=== PATIENT | male | born 1980 | race Caucasian/White ===

== ENCOUNTER 2016-11-29 21:25 | Emergency (ER) | payer MEDICAID ==
[2016-11-29 22:12] LABS: APPEARANCE CLEAR (CLEAR); BILIRUBIN NEGATIVE (NEGATIVE); COLOR STRAW (YELLOW); GLUCOSE NEGATIVE (NEGATIVE); KETONE NEGATIVE (NEGATIVE); LEUKOCYTE ESTERASE NEGATIVE (NEGATIVE); NITRITE NEGATIVE (NEGATIVE); PROTEIN NEGATIVE (NEGATIVE); SPECIFIC GRAVITY 1.005 (1.005-1.020); UROBILINOGEN NORMAL (NORMAL)
[2016-11-29 22:23] LABS: UDS - AMPHET POSITIVE QUAL (NEGATIVE); UDS - BARB NEGATIVE QUAL (NEGATIVE); UDS - BENZO POSITIVE QUAL (NEGATIVE); UDS - COCAINE NEGATIVE QUAL (NEGATIVE); UDS - METH NEGATIVE QUAL (NEGATIVE); UDS - OPIATE NEGATIVE QUAL (NEGATIVE); UDS - PCP NEGATIVE QUAL (NEGATIVE); UDS - THC NEGATIVE QUAL (NEGATIVE)
[2016-11-29 23:27] LABS: BASOPHILS 0.4 % (0.0-2.0); EOSINOPHILS 1.1 % (0-7); HEMATOCRIT 42.6 % (42.0-54.0); HEMOGLOBIN 14.6 g/dL (13.5-17.5); IMMATURE GRANULOCYTES 0.1 % (0-5); LYMPHOCYTES 43.8 % (15-50); MCH 31.9 pg (26.0-34.0); MCHC 34.3 g/dL (31.0-37.0); MEAN PLATELET VOLUME 9.8 fL (7.4-10.4); MONOCYTES 5.4 % (2-11); NEUTROPHILS 49.2 % (40-80); PLATELET COUNT 238 10x3/uL (130-400); RBC 4.58 10x6/uL (4.20-6.10); RDW 12.8 % (11.5-14.5); WBC 8.4 10x3/uL (4.8-10.8)
[2016-11-29 23:44] LABS: ALBUMIN 3.9 g/dL (3.4-5.0); ALKALINE PHOSPHATASE 69 U/L (46-116); ALT (SGPT) 91 U/L (10-68); BILIRUBIN - TOTAL 0.41 mg/dL (0.2-1.3); CALC OSMOLALITY 283 mosm/kg (275-300); CALCIUM 8.6 mg/dL (8.5-10.1); CARBON DIOXIDE 27.1 mmol/L (21.0-32.0); CHLORIDE - SERUM 105 mmol/L (98-107); CREATININE - SERUM 0.9 mg/dL (0.6-1.3); GLUCOSE 108 mg/dL (74-106); POTASSIUM - SERUM 3.8 mmol/L (3.5-5.1); PROTEIN - SERUM 7.5 g/dL (6.4-8.2); SODIUM 142 mmol/L (136-145); UREA NITROGEN 13 mg/dL (7-18); eGFR NON AFRICAN AMERICAN > 90 mL/min (90-120)
== END 2016-11-30 09:01 | disposition home or self-care (01) ==
LOC: D.ER 21:25
PROVIDERS: Surgery
DX: R45.851 Suicidal ideations (principal); F15.10 Other stimulant abuse, uncomplicated; F23 Brief psychotic disorder; F43.20 Adjustment disorder, unspecified; I10 Essential (primary) hypertension

== ENCOUNTER 2017-01-07 14:30 | Emergency (ER) | payer MEDICAID ==
[2017-01-07 15:19] LABS: BASOPHILS 0.3 % (0-2); EOSINOPHILS 2.8 % (0-7); HEMATOCRIT 42.6 % (42.0-54.0); HEMOGLOBIN 14.4 g/dL (13.5-17.5); IMMATURE GRANULOCYTES 0.1 % (0-5); LYMPHOCYTES 42.1 % (15-50); MCH 31.8 pg (26.0-34.0); MCHC 33.8 g/dL (31.0-37.0); MEAN PLATELET VOLUME 10.1 fL (7.4-10.4); MONOCYTES 5.8 % (2-11); NEUTROPHILS 48.9 % (40-80); PLATELET COUNT 237 10x3/uL (130-400); RBC 4.53 10x6/uL (4.20-6.10); RDW 12.8 % (11.5-14.5); WBC 7.4 10x3/uL (4.8-10.8)
[2017-01-07 15:23] LABS: APPEARANCE CLEAR (CLEAR); BILIRUBIN NEGATIVE (NEGATIVE); COLOR YELLOW (YELLOW); GLUCOSE NEGATIVE (NEGATIVE); KETONE NEGATIVE (NEGATIVE); LEUKOCYTE ESTERASE NEGATIVE (NEGATIVE); NITRITE NEGATIVE (NEGATIVE); PROTEIN NEGATIVE (NEGATIVE); SPECIFIC GRAVITY 1.015 (1.005-1.020)
[2017-01-07 15:37] LABS: UDS - AMPHET POSITIVE QUAL (NEGATIVE); UDS - BARB NEGATIVE QUAL (NEGATIVE); UDS - BENZO NEGATIVE QUAL (NEGATIVE); UDS - COCAINE NEGATIVE QUAL (NEGATIVE); UDS - METH NEGATIVE QUAL (NEGATIVE); UDS - OPIATE NEGATIVE QUAL (NEGATIVE); UDS - PCP NEGATIVE QUAL (NEGATIVE); UDS - THC POSITIVE QUAL (NEGATIVE)
[2017-01-07 15:42] LABS: ALBUMIN 3.6 g/dL (3.4-5.0); ALKALINE PHOSPHATASE 90 U/L (46-116); ALT (SGPT) 42 U/L (10-68); BILIRUBIN - TOTAL 0.25 mg/dL (0.2-1.3); CALC OSMOLALITY 288 mosm/kg (275-300); CALCIUM 8.6 mg/dL (8.5-10.1); CARBON DIOXIDE 29.9 mmol/L (21.0-32.0); CHLORIDE - SERUM 109 mmol/L (98-107); CREATININE - SERUM 0.9 mg/dL (0.6-1.3); GLUCOSE 89 mg/dL (74-106); POTASSIUM - SERUM 4.2 mmol/L (3.5-5.1); PROTEIN - SERUM 6.7 g/dL (6.4-8.2); SODIUM 145 mmol/L (136-145); UREA NITROGEN 15 mg/dL (7-18); eGFR NON AFRICAN AMERICAN > 90 mL/min (90-120)
== END 2017-01-08 02:13 ==
LOC: D.ER 14:30
PROVIDERS: Emergency Medicine
DX: F33.9 Major depressive disorder, recurrent, unspecified (principal); R45.851 Suicidal ideations; F43.20 Adjustment disorder, unspecified; I10 Essential (primary) hypertension; F17.200 Nicotine dependence, unspecified, uncomplicated

== ENCOUNTER 2017-03-23 23:21 | Emergency (ER) | payer MEDICAID ==
[2017-03-24 00:16] LABS: BASOPHILS 0.2 % (0-2); EOSINOPHILS 1.2 % (0-7); HEMOGLOBIN 18.2 g/dL (13.5-17.5); IMMATURE GRANULOCYTES 0.3 % (0-5); LYMPHOCYTES 38.1 % (15-50); MCH 32.7 pg (26.0-34.0); MCHC 35.7 g/dL (31.0-37.0); MCV 91.6 fL (80.0-100.0); MEAN PLATELET VOLUME 10.4 fL (7.4-10.4); MONOCYTES 10.2 % (2-11); PLATELET COUNT 272 10x3/uL (130-400); RBC 5.57 10x6/uL (4.20-6.10); RDW 13.1 % (11.5-14.5); WBC 12.4 10x3/uL (4.8-10.8)
[2017-03-24 00:20] LABS: ALBUMIN 5.2 g/dL (3.4-5.0); ANION GAP 18.4 mmol/L (8-16); BILIRUBIN - TOTAL 0.8 mg/dL (0.2-1.3); CALCIUM 10.4 mg/dL (8.5-10.1); CREATININE - SERUM 3.4 mg/dL (0.6-1.3); POTASSIUM - SERUM 3.4 mmol/L (3.5-5.1); PROTEIN - SERUM 9.8 g/dL (6.4-8.2)
[2017-03-24 00:23] LABS: UDS - AMPHET POSITIVE QUAL (NEGATIVE); UDS - BARB NEGATIVE QUAL (NEGATIVE); UDS - BENZO NEGATIVE QUAL (NEGATIVE); UDS - COCAINE NEGATIVE QUAL (NEGATIVE); UDS - METH NEGATIVE QUAL (NEGATIVE); UDS - OPIATE NEGATIVE QUAL (NEGATIVE); UDS - PCP NEGATIVE QUAL (NEGATIVE); UDS - THC NEGATIVE QUAL (NEGATIVE)
[2017-03-24 00:25] LABS: APPEARANCE HAZY (CLEAR); BILIRUBIN NEGATIVE (NEGATIVE); COLOR DK YELLOW (YELLOW); GLUCOSE 50 mg/dL (NEGATIVE); KETONE NEGATIVE (NEGATIVE); LEUKOCYTE ESTERASE TRACE (NEGATIVE); NITRITE NEGATIVE (NEGATIVE); PROTEIN 3+ mg/dL (NEGATIVE); SPECIFIC GRAVITY 1.025 (1.005-1.020); UROBILINOGEN NORMAL (NORMAL)
[2017-03-24 00:26] LABS: BACTERIA MANY /hpf (NONE SEEN); CALCIUM OXALATE CRYSTALS 0-5 /hpf (NONE SEEN); EPITHELIAL CELLS 0-5 /hpf (0-5); RED CELLS - URINE 0-5 /hpf (0-5); WHITE CELLS - URINE 0-5 /hpf (0-5)
== END 2017-03-24 13:13 | disposition short-term general hospital (02) ==
LOC: D.ER 23:21
PROVIDERS: Emergency Medicine
DX: R45.851 Suicidal ideations (principal); F33.9 Major depressive disorder, recurrent, unspecified; F15.10 Other stimulant abuse, uncomplicated; E86.0 Dehydration; N28.9 Disorder of kidney and ureter, unspecified; E87.6 Hypokalemia; I10 Essential (primary) hypertension; F17.200 Nicotine dependence, unspecified, uncomplicated

== ENCOUNTER 2017-04-20 09:44 | Emergency (ER) | payer MEDICAID ==
[2017-04-20 10:17] LABS: BASOPHILS 0.2 % (0-2); EOSINOPHILS 3.4 % (0-7); HEMATOCRIT 45.2 % (42.0-54.0); HEMOGLOBIN 15.1 g/dL (13.5-17.5); IMMATURE GRANULOCYTES 0.2 % (0-5); LYMPHOCYTES 38.6 % (15-50); MCH 31.9 pg (26.0-34.0); MCHC 33.4 g/dL (31.0-37.0); MCV 95.4 fL (80.0-100.0); MEAN PLATELET VOLUME 10.4 fL (7.4-10.4); MONOCYTES 5.8 % (2-11); NEUTROPHILS 51.8 % (40-80); PLATELET COUNT 222 10x3/uL (130-400); RBC 4.74 10x6/uL (4.20-6.10); RDW 13.6 % (11.5-14.5); WBC 6.6 10x3/uL (4.8-10.8)
[2017-04-20 10:30] LABS: UDS - AMPHET POSITIVE QUAL (NEGATIVE); UDS - BARB NEGATIVE QUAL (NEGATIVE); UDS - BENZO NEGATIVE QUAL (NEGATIVE); UDS - COCAINE NEGATIVE QUAL (NEGATIVE); UDS - METH NEGATIVE QUAL (NEGATIVE); UDS - OPIATE NEGATIVE QUAL (NEGATIVE); UDS - PCP NEGATIVE QUAL (NEGATIVE); UDS - THC POSITIVE QUAL (NEGATIVE)
[2017-04-20 10:30] LABS: ALBUMIN 3.8 g/dL (3.4-5.0); ALKALINE PHOSPHATASE 72 U/L (46-116); ALT (SGPT) 134 U/L (10-68); BILIRUBIN - TOTAL 0.81 mg/dL (0.2-1.3); CALC OSMOLALITY 287 mosm/kg (275-300); CALCIUM 8.4 mg/dL (8.5-10.1); CARBON DIOXIDE 32.1 mmol/L (21.0-32.0); CHLORIDE - SERUM 103 mmol/L (98-107); POTASSIUM - SERUM 3.4 mmol/L (3.5-5.1); PROTEIN - SERUM 7.7 g/dL (6.4-8.2); SODIUM 141 mmol/L (136-145); UREA NITROGEN 14 mg/dL (7-18); eGFR NON AFRICAN AMERICAN 89 mL/min (90-120)
[2017-04-20 10:34] LABS: GLUCOSE 215 mg/dL (74-106)
[2017-04-20 10:46] LABS: VALPROIC ACID (DEPAKOTE) < 3.0 ug/mL (50.0-100.0)
[2017-04-20 11:00] LABS: APPEARANCE HAZY (CLEAR); COLOR DK YELLOW (YELLOW); LEUKOCYTE ESTERASE TRACE (NEGATIVE); NITRITE NEGATIVE (NEGATIVE); PROTEIN NEGATIVE (NEGATIVE); SPECIFIC GRAVITY 1.025 (1.005-1.020)
[2017-04-20 11:01] LABS: BILIRUBIN NEGATIVE (NEGATIVE); GLUCOSE 100 mg/dL (NEGATIVE); KETONE NEGATIVE (NEGATIVE); WHITE CELLS - URINE 0-5 /hpf (0-5)
[2017-04-20 11:02] LABS: AMORPHOUS SEDIMENT <1+ /lpf (NONE SEEN); BACTERIA FEW /hpf (NONE SEEN); EPITHELIAL CELLS 0-5 /hpf (0-5); GRANULAR CAST 0-5 /lpf (NONE SEEN); HYALINE CAST OCC /lpf (NONE SEEN); MUCUS >1+ /lpf (NONE SEEN); RED CELLS - URINE 0-5 /hpf (0-5)
[2017-04-20 11:24] LABS: HEMOGLOBIN A1C 5.5 % (4.8-6.0)
== END 2017-04-20 17:25 | disposition home or self-care (01) ==
LOC: D.ER 09:44
PROVIDERS: Family Medicine; Physician Assistant
DX: F15.10 Other stimulant abuse, uncomplicated (principal); F33.9 Major depressive disorder, recurrent, unspecified; Z86.59 Personal history of other mental and behavioral disorders; R73.09 Other abnormal glucose; F17.200 Nicotine dependence, unspecified, uncomplicated

== ENCOUNTER 2018-04-17 14:12 | Emergency (ER) | payer MEDICAID ==
[~2018-04-17] VITALS: Ht 188 cm; Wt 109.1 kg
[2018-04-17 14:20] VITALS: Ht 188 cm; Wt 109.1 kg
[2018-04-17 14:33] LABS: APPEARANCE CLEAR (CLEAR); BILIRUBIN NEGATIVE (NEGATIVE); COLOR DK YELLOW (YELLOW); GLUCOSE NEGATIVE (NEGATIVE); KETONE NEGATIVE (NEGATIVE); NITRITE NEGATIVE (NEGATIVE); PROTEIN NEGATIVE (NEGATIVE); UROBILINOGEN NORMAL (NORMAL)
[2018-04-17 14:36] LABS: WHITE CELLS - URINE 0-5 /hpf (0-5)
[2018-04-17 14:38] LABS: MUCUS >1+ /lpf (NONE SEEN); RED CELLS - URINE 0-5 /hpf (0-5)
[2018-04-17 14:42] LABS: UDS - AMPHET NEGATIVE QUAL (NEGATIVE); UDS - BARB NEGATIVE QUAL (NEGATIVE); UDS - BENZO NEGATIVE QUAL (NEGATIVE); UDS - COCAINE NEGATIVE QUAL (NEGATIVE); UDS - OPIATE NEGATIVE QUAL (NEGATIVE); UDS - PCP NEGATIVE QUAL (NEGATIVE); UDS - THC POSITIVE QUAL (NEGATIVE)
[2018-04-17 15:01] LABS: BASOPHILS 0.3 % (0-2); EOSINOPHILS 3.1 % (0-7); HEMATOCRIT 44.9 % (42.0-54.0); HEMOGLOBIN 15.6 g/dL (13.5-17.5); LYMPHOCYTES 49.4 % (15-50); MCHC 34.7 g/dL (31.0-37.0); MCV 92.2 fL (80.0-100.0); MEAN PLATELET VOLUME 10.3 fL (7.4-10.4); MONOCYTES 6.5 % (2-11); NEUTROPHILS 40.7 % (40-80); PLATELET COUNT 224 10x3/uL (130-400); RBC 4.87 10x6/uL (4.20-6.10); RDW 13.3 % (11.5-14.5); WBC 5.9 10x3/uL (4.8-10.8)
[2018-04-17 15:20] LABS: ALBUMIN 3.6 g/dL (3.4-5.0); ALKALINE PHOSPHATASE 73 U/L (46-116); ALT (SGPT) 146 U/L (10-68); BILIRUBIN - TOTAL 0.79 mg/dL (0.2-1.3); CALC OSMOLALITY 284 mosm/kg (275-300); CALCIUM 8.9 mg/dL (8.5-10.1); CARBON DIOXIDE 31.2 mmol/L (21.0-32.0); CHLORIDE - SERUM 104 mmol/L (98-107); CREATININE - SERUM 0.7 mg/dL (0.6-1.3); MAGNESIUM - SERUM 2.2 mg/dL (1.8-2.4); POTASSIUM - SERUM 4.5 mmol/L (3.5-5.1); SODIUM 143 mmol/L (136-145); UREA NITROGEN 15 mg/dL (7-18); eGFR NON AFRICAN AMERICAN > 90 mL/min (90-120)
[2018-04-17 15:33] LABS: GLUCOSE 88 mg/dL (74-106)
[2018-04-17 20:30] VITALS: BP 115/86
== END 2018-04-17 20:34 | disposition other institution (70) ==
LOC: D.ER 14:12
PROVIDERS: Family Medicine
DX: R45.850 Homicidal ideations (principal); Z91.19 Patient's noncompliance with other medical treatment and regimen; F17.200 Nicotine dependence, unspecified, uncomplicated

== ENCOUNTER 2018-04-27 12:04 | Emergency (ER) | payer MEDICAID ==
[~2018-04-27] VITALS: Ht 188 cm; Wt 118.2 kg
[2018-04-27 12:21] VITALS: Ht 188 cm; Wt 118.2 kg
[2018-04-27 12:46] LABS: UDS - AMPHET POSITIVE QUAL (NEGATIVE); UDS - BARB NEGATIVE QUAL (NEGATIVE); UDS - BENZO NEGATIVE QUAL (NEGATIVE); UDS - COCAINE NEGATIVE QUAL (NEGATIVE); UDS - OPIATE NEGATIVE QUAL (NEGATIVE); UDS - PCP NEGATIVE QUAL (NEGATIVE); UDS - THC POSITIVE QUAL (NEGATIVE)
[2018-04-27 12:55] LABS: HEMATOCRIT 43.9 % (42.0-54.0); HEMOGLOBIN 15.3 g/dL (13.5-17.5); MCH 31.9 pg (26.0-34.0); MCHC 34.9 g/dL (31.0-37.0); MCV 91.6 fL (80.0-100.0); MEAN PLATELET VOLUME 10.5 fL (7.4-10.4); PLATELET COUNT 237 10x3/uL (130-400); RBC 4.79 10x6/uL (4.20-6.10); RDW 13.2 % (11.5-14.5); WBC 6.9 10x3/uL (4.8-10.8)
[2018-04-27 12:55] LABS: APPEARANCE HAZY (CLEAR); BACTERIA FEW /hpf (NONE SEEN); BILIRUBIN NEGATIVE (NEGATIVE); COLOR DK YELLOW (YELLOW); EPITHELIAL CELLS 0-5 /hpf (0-5); GLUCOSE NEGATIVE (NEGATIVE); KETONE NEGATIVE (NEGATIVE); NITRITE NEGATIVE (NEGATIVE); PROTEIN TRACE mg/dL (NEGATIVE); RED CELLS - URINE 0-5 /hpf (0-5); SPECIFIC GRAVITY 1.025 (1.005-1.020); UROBILINOGEN NORMAL (NORMAL); WHITE CELLS - URINE 0-5 /hpf (0-5)
[2018-04-27 12:56] LABS: GRANULAR CAST 0-5 /lpf (NONE SEEN); HYALINE CAST RARE /lpf (NONE SEEN); MUCUS >1+ /lpf (NONE SEEN)
[2018-04-27 12:59] LABS: ALBUMIN 3.9 g/dL (3.4-5.0); ALKALINE PHOSPHATASE 78 U/L (46-116); ALT (SGPT) 114 U/L (10-68); BILIRUBIN - TOTAL 0.96 mg/dL (0.2-1.3); CALC OSMOLALITY 285 mosm/kg (275-300); CALCIUM 8.9 mg/dL (8.5-10.1); CARBON DIOXIDE 25.3 mmol/L (21.0-32.0); CHLORIDE - SERUM 106 mmol/L (98-107); CREATININE - SERUM 0.9 mg/dL (0.6-1.3); GLUCOSE 80 mg/dL (74-106); POTASSIUM - SERUM 3.8 mmol/L (3.5-5.1); PROTEIN - SERUM 7.7 g/dL (6.4-8.2); SODIUM 143 mmol/L (136-145); UREA NITROGEN 18 mg/dL (7-18); eGFR NON AFRICAN AMERICAN > 90 mL/min (90-120)
[2018-04-27 13:06] LABS: THYROID STIMULATING HORMONE 0.93 uIU/mL (0.36-3.74)
[2018-04-27 14:03] LABS: EOSINOPHILS 3 % (0-7); LYMPHOCYTES 43 % (15-50); MONOCYTES 12 % (2-11); NEUTROPHILS 36 % (40-80); PLATELET ESTIMATE NORMAL
[2018-04-28 07:50] VITALS: BP 125/089
== END 2018-04-28 07:52 ==
LOC: D.ER 12:04
PROVIDERS: Family Medicine
DX: R45.851 Suicidal ideations (principal); R45.850 Homicidal ideations; F15.129 Other stimulant abuse with intoxication, unspecified; F17.200 Nicotine dependence, unspecified, uncomplicated

== ENCOUNTER 2018-09-27 10:54 | Emergency (ER) | payer MEDICAID ==
[~2018-09-27] VITALS: Ht 185.4 cm; Wt 127.3 kg
[2018-09-27 10:58] VITALS: Ht 185.4 cm; Wt 127.3 kg
[2018-09-27 11:38] LABS: BASOPHILS 0.1 % (0-2); EOSINOPHILS 2.9 % (0-7); HEMOGLOBIN 15.8 g/dL (13.5-17.5); IMMATURE GRANULOCYTES 0.3 % (0-5); LYMPHOCYTES 42.7 % (15-50); MCHC 34.3 g/dL (31.0-37.0); MCV 93.3 fL (80.0-100.0); MEAN PLATELET VOLUME 10.3 fL (7.4-10.4); PLATELET COUNT 204 10x3/uL (130-400); RBC 4.93 10x6/uL (4.20-6.10); RDW 13.6 % (11.5-14.5); WBC 7.4 10x3/uL (4.8-10.8)
[2018-09-27 11:48] LABS: UDS - AMPHET NEGATIVE QUAL (NEGATIVE); UDS - BARB NEGATIVE QUAL (NEGATIVE); UDS - BENZO NEGATIVE QUAL (NEGATIVE); UDS - COCAINE NEGATIVE QUAL (NEGATIVE); UDS - OPIATE NEGATIVE QUAL (NEGATIVE); UDS - PCP NEGATIVE QUAL (NEGATIVE); UDS - THC POSITIVE QUAL (NEGATIVE)
[2018-09-27 11:54] LABS: ALBUMIN 3.7 g/dL (3.4-5.0); ALKALINE PHOSPHATASE 67 U/L (46-116); ALT (SGPT) 54 U/L (10-68); BILIRUBIN - TOTAL 0.55 mg/dL (0.2-1.3); CALC OSMOLALITY 279 mosm/kg (275-300); CALCIUM 8.9 mg/dL (8.5-10.1); CARBON DIOXIDE 32.1 mmol/L (21.0-32.0); CHLORIDE - SERUM 103 mmol/L (98-107); GLUCOSE 82 mg/dL (74-106); POTASSIUM - SERUM 4.2 mmol/L (3.5-5.1); PROTEIN - SERUM 7.3 g/dL (6.4-8.2); SODIUM 141 mmol/L (136-145); UREA NITROGEN 13 mg/dL (7-18); eGFR NON AFRICAN AMERICAN 88 mL/min (90-120)
[2018-09-27 14:55] VITALS: BP 139/95
== END 2018-09-27 17:22 | disposition home or self-care (01) ==
LOC: D.ER 10:54
PROVIDERS: Family Medicine
DX: F32.9 Major depressive disorder, single episode, unspecified (principal); F10.11 Alcohol abuse, in remission; F15.11 Other stimulant abuse, in remission; R45.851 Suicidal ideations

== ENCOUNTER 2018-10-09 20:16 | Emergency (ER) | payer MEDICAID ==
[~2018-10-09] VITALS: Ht 185.4 cm; Wt 72.7 kg
[2018-10-09 20:21] VITALS: Ht 185.4 cm; Wt 72.7 kg
[2018-10-09 20:42] LABS: BASOPHILS 0.2 % (0-2); EOSINOPHILS 2.4 % (0-7); HEMATOCRIT 48.1 % (42.0-54.0); HEMOGLOBIN 16.9 g/dL (13.5-17.5); IMMATURE GRANULOCYTES 0.1 % (0-5); LYMPHOCYTES 52.3 % (15-50); MCH 32.1 pg (26.0-34.0); MCHC 35.1 g/dL (31.0-37.0); MCV 91.3 fL (80.0-100.0); MEAN PLATELET VOLUME 9.9 fL (7.4-10.4); MONOCYTES 9.4 % (2-11); NEUTROPHILS 35.6 % (40-80); PLATELET COUNT 241 10x3/uL (130-400); RBC 5.27 10x6/uL (4.20-6.10); RDW 13.3 % (11.5-14.5); WBC 11.3 10x3/uL (4.8-10.8)
[2018-10-09 21:10] LABS: ALBUMIN 4.2 g/dL (3.4-5.0); ALKALINE PHOSPHATASE 76 U/L (46-116); ALT (SGPT) 101 U/L (10-68); BILIRUBIN - TOTAL 1.12 mg/dL (0.2-1.3); CALC OSMOLALITY 280 mosm/kg (275-300); CARBON DIOXIDE 27.3 mmol/L (21.0-32.0); CHLORIDE - SERUM 99 mmol/L (98-107); CREATININE - SERUM 1.1 mg/dL (0.6-1.3); MAGNESIUM - SERUM 2.2 mg/dL (1.8-2.4); POTASSIUM - SERUM 3.7 mmol/L (3.5-5.1); PROTEIN - SERUM 8.4 g/dL (6.4-8.2); SODIUM 138 mmol/L (136-145); UREA NITROGEN 31 mg/dL (7-18); eGFR NON AFRICAN AMERICAN 79 mL/min (90-120)
[2018-10-09 21:11] LABS: GLUCOSE 63 mg/dL (74-106)
[2018-10-09 21:27] LABS: APPEARANCE CLEAR (CLEAR); COLOR YELLOW (YELLOW); SPECIFIC GRAVITY 1.025 (1.005-1.020)
[2018-10-09 21:28] LABS: BILIRUBIN NEGATIVE (NEGATIVE); GLUCOSE NEGATIVE (NEGATIVE); KETONE NEGATIVE (NEGATIVE); NITRITE NEGATIVE (NEGATIVE); PROTEIN 1+ mg/dL (NEGATIVE); RED CELLS - URINE RARE /hpf (0-5); UROBILINOGEN NORMAL (NORMAL); WHITE CELLS - URINE OCC /hpf (0-5)
[2018-10-09 21:33] LABS: UDS - AMPHET POSITIVE QUAL (NEGATIVE); UDS - BARB NEGATIVE QUAL (NEGATIVE); UDS - BENZO NEGATIVE QUAL (NEGATIVE); UDS - COCAINE NEGATIVE QUAL (NEGATIVE); UDS - OPIATE NEGATIVE QUAL (NEGATIVE); UDS - PCP NEGATIVE QUAL (NEGATIVE); UDS - THC POSITIVE QUAL (NEGATIVE)
[2018-10-10 07:15] VITALS: BP 132/80
== END 2018-10-10 13:21 ==
LOC: D.ER 20:16
PROVIDERS: Family Medicine
DX: F32.9 Major depressive disorder, single episode, unspecified (principal); F19.10 Other psychoactive substance abuse, uncomplicated; R45.851 Suicidal ideations; I10 Essential (primary) hypertension; F17.200 Nicotine dependence, unspecified, uncomplicated

== ENCOUNTER 2018-10-24 15:22 | Emergency (ER) | payer MEDICAID ==
[2018-10-24 15:36] VITALS: Ht 185.4 cm
[2018-10-24 16:24] LABS: BASOPHILS 0.2 % (0-2); EOSINOPHILS 0.4 % (0-7); HEMATOCRIT 44.4 % (42.0-54.0); HEMOGLOBIN 15.2 g/dL (13.5-17.5); IMMATURE GRANULOCYTES 0.3 % (0-5); LYMPHOCYTES 31.7 % (15-50); MCH 31.5 pg (26.0-34.0); MCHC 34.2 g/dL (31.0-37.0); MCV 92.1 fL (80.0-100.0); MEAN PLATELET VOLUME 10.4 fL (7.4-10.4); MONOCYTES 3.6 % (2-11); NEUTROPHILS 63.8 % (40-80); PLATELET COUNT 289 10x3/uL (130-400); RBC 4.82 10x6/uL (4.20-6.10); RDW 13.5 % (11.5-14.5); WBC 11.3 10x3/uL (4.8-10.8)
[2018-10-24 16:36] LABS: APPEARANCE CLEAR (CLEAR); BILIRUBIN NEGATIVE (NEGATIVE); COLOR YELLOW (YELLOW); GLUCOSE NEGATIVE (NEGATIVE); KETONE NEGATIVE (NEGATIVE); NITRITE NEGATIVE (NEGATIVE); PROTEIN TRACE mg/dL (NEGATIVE); SPECIFIC GRAVITY 1.025 (1.005-1.020); UROBILINOGEN NORMAL (NORMAL)
[2018-10-24 16:38] LABS: BACTERIA FEW /hpf (NONE SEEN); EPITHELIAL CELLS 0-5 /hpf (0-5); RED CELLS - URINE 0-5 /hpf (0-5); UDS - AMPHET NEGATIVE QUAL (NEGATIVE); UDS - BARB NEGATIVE QUAL (NEGATIVE); UDS - BENZO NEGATIVE QUAL (NEGATIVE); UDS - COCAINE NEGATIVE QUAL (NEGATIVE); UDS - OPIATE NEGATIVE QUAL (NEGATIVE); UDS - PCP NEGATIVE QUAL (NEGATIVE); UDS - THC POSITIVE QUAL (NEGATIVE); WHITE CELLS - URINE OCC /hpf (0-5)
[2018-10-24 16:39] LABS: ALBUMIN 3.9 g/dL (3.4-5.0); ALKALINE PHOSPHATASE 75 U/L (46-116); ALT (SGPT) 74 U/L (10-68); BILIRUBIN - TOTAL 0.58 mg/dL (0.2-1.3); CALC OSMOLALITY 281 mosm/kg (275-300); CALCIUM 8.9 mg/dL (8.5-10.1); CARBON DIOXIDE 27.7 mmol/L (21.0-32.0); CHLORIDE - SERUM 102 mmol/L (98-107); GLUCOSE 75 mg/dL (74-106); POTASSIUM - SERUM 3.7 mmol/L (3.5-5.1); PROTEIN - SERUM 8.2 g/dL (6.4-8.2); SODIUM 141 mmol/L (136-145); UREA NITROGEN 18 mg/dL (7-18); eGFR NON AFRICAN AMERICAN 88 mL/min (90-120)
[2018-10-24 22:10] VITALS: BP 142/85
== END 2018-10-24 22:10 ==
LOC: D.ER 15:22
PROVIDERS: Family Medicine
DX: F31.9 Bipolar disorder, unspecified (principal); F23 Brief psychotic disorder; R45.851 Suicidal ideations

== ENCOUNTER 2018-10-30 04:28 | Emergency (ER) | payer MEDICAID ==
[~2018-10-30] VITALS: Ht 185.4 cm; Wt 118.2 kg
[2018-10-30 04:31] VITALS: Ht 185.4 cm; Wt 118.2 kg
[2018-10-30 04:46] LABS: APPEARANCE CLEAR (CLEAR); BILIRUBIN NEGATIVE (NEGATIVE); COLOR YELLOW (YELLOW); GLUCOSE NEGATIVE (NEGATIVE); KETONE NEGATIVE (NEGATIVE); NITRITE NEGATIVE (NEGATIVE); PROTEIN NEGATIVE (NEGATIVE); UROBILINOGEN NORMAL (NORMAL)
[2018-10-30 04:51] LABS: UDS - AMPHET POSITIVE QUAL (NEGATIVE); UDS - BARB NEGATIVE QUAL (NEGATIVE); UDS - BENZO NEGATIVE QUAL (NEGATIVE); UDS - COCAINE NEGATIVE QUAL (NEGATIVE); UDS - OPIATE NEGATIVE QUAL (NEGATIVE); UDS - PCP NEGATIVE QUAL (NEGATIVE); UDS - THC POSITIVE QUAL (NEGATIVE)
[2018-10-30 05:09] LABS: BASOPHILS 0.3 % (0-2); EOSINOPHILS 4.5 % (0-7); HEMOGLOBIN 15.8 g/dL (13.5-17.5); IMMATURE GRANULOCYTES 0.2 % (0-5); LYMPHOCYTES 48.9 % (15-50); MCH 31.3 pg (26.0-34.0); MCHC 34.3 g/dL (31.0-37.0); MCV 91.1 fL (80.0-100.0); MONOCYTES 7.3 % (2-11); NEUTROPHILS 38.8 % (40-80); PLATELET COUNT 304 10x3/uL (130-400); RBC 5.05 10x6/uL (4.20-6.10); RDW 13.6 % (11.5-14.5); WBC 9.3 10x3/uL (4.8-10.8)
[2018-10-30 05:25] LABS: CALC OSMOLALITY 284 mosm/kg (275-300); CALCIUM 8.8 mg/dL (8.5-10.1); CARBON DIOXIDE 27.3 mmol/L (21.0-32.0); CHLORIDE - SERUM 105 mmol/L (98-107); CREATININE - SERUM 0.9 mg/dL (0.6-1.3); GLUCOSE 89 mg/dL (74-106); POTASSIUM - SERUM 4.1 mmol/L (3.5-5.1); SODIUM 144 mmol/L (136-145); THYROID STIMULATING HORMONE 0.66 uIU/mL (0.36-3.74); UREA NITROGEN 10 mg/dL (7-18); eGFR NON AFRICAN AMERICAN > 90 mL/min (90-120)
[2018-10-30 10:38] VITALS: BP 128/64
== END 2018-10-30 10:39 | disposition home or self-care (01) ==
LOC: D.ER 04:28
PROVIDERS: Emergency Medicine
DX: F15.10 Other stimulant abuse, uncomplicated (principal); I10 Essential (primary) hypertension

== ENCOUNTER 2018-10-30 16:49 | Emergency (ER) | payer MEDICAID ==
[~2018-10-30] VITALS: Ht 185.4 cm; Wt 127.3 kg
[2018-10-30 16:54] VITALS: Ht 185.4 cm; Wt 127.3 kg
[2018-10-30 17:50] LABS: BASOPHILS 0.2 % (0-2); EOSINOPHILS 3.4 % (0-7); HEMATOCRIT 45.3 % (42.0-54.0); HEMOGLOBIN 15.7 g/dL (13.5-17.5); IMMATURE GRANULOCYTES 0.3 % (0-5); LYMPHOCYTES 44.5 % (15-50); MCHC 34.7 g/dL (31.0-37.0); MCV 92.4 fL (80.0-100.0); MONOCYTES 7.8 % (2-11); NEUTROPHILS 43.8 % (40-80); PLATELET COUNT 321 10x3/uL (130-400); RDW 13.6 % (11.5-14.5)
[2018-10-30 18:16] LABS: ALBUMIN 3.9 g/dL (3.4-5.0); ALKALINE PHOSPHATASE 87 U/L (46-116); ALT (SGPT) 80 U/L (10-68); BILIRUBIN - TOTAL 0.55 mg/dL (0.2-1.3); CALCIUM 9.1 mg/dL (8.5-10.1); CARBON DIOXIDE 31.1 mmol/L (21.0-32.0); CHLORIDE - SERUM 103 mmol/L (98-107); MAGNESIUM - SERUM 2.4 mg/dL (1.8-2.4); POTASSIUM - SERUM 3.9 mmol/L (3.5-5.1); SODIUM 142 mmol/L (136-145); eGFR NON AFRICAN AMERICAN 88 mL/min (90-120)
[2018-10-30 18:24] LABS: CALC OSMOLALITY 281 mosm/kg (275-300); GLUCOSE 53 mg/dL (74-106); UREA NITROGEN 19 mg/dL (7-18)
[2018-10-30 18:40] LABS: WBC 11.7 10x3/uL (4.8-10.8)
[2018-10-30 18:45] LABS: APPEARANCE CLEAR (CLEAR); BILIRUBIN NEGATIVE (NEGATIVE); COLOR YELLOW (YELLOW); GLUCOSE NEGATIVE (NEGATIVE); KETONE NEGATIVE (NEGATIVE); NITRITE NEGATIVE (NEGATIVE); PROTEIN TRACE mg/dL (NEGATIVE); RED CELLS - URINE OCC /hpf (0-5); WHITE CELLS - URINE NSEEN /hpf (0-5)
[2018-10-30 18:50] LABS: UDS - AMPHET POSITIVE QUAL (NEGATIVE); UDS - BARB NEGATIVE QUAL (NEGATIVE); UDS - BENZO NEGATIVE QUAL (NEGATIVE); UDS - COCAINE NEGATIVE QUAL (NEGATIVE); UDS - OPIATE NEGATIVE QUAL (NEGATIVE); UDS - PCP NEGATIVE QUAL (NEGATIVE); UDS - THC POSITIVE QUAL (NEGATIVE)
[2018-10-30 21:55] VITALS: BP 118/76
== END 2018-10-30 23:23 ==
LOC: D.ER 16:49
PROVIDERS: Family Medicine
DX: R45.851 Suicidal ideations (principal); F41.9 Anxiety disorder, unspecified; F15.10 Other stimulant abuse, uncomplicated; I10 Essential (primary) hypertension; F17.200 Nicotine dependence, unspecified, uncomplicated

== ENCOUNTER 2018-11-12 00:34 | Emergency (ER) | payer MEDICAID ==
[~2018-11-12] VITALS: Ht 185.4 cm; Wt 113.4 kg
[2018-11-12 00:43] VITALS: Ht 185.4 cm; Wt 113.4 kg
[2018-11-12 00:56] LABS: BASOPHILS 0.2 % (0-2); EOSINOPHILS 1.4 % (0-7); HEMATOCRIT 47.4 % (42.0-54.0); HEMOGLOBIN 16.3 g/dL (13.5-17.5); IMMATURE GRANULOCYTES 0.2 % (0-5); LYMPHOCYTES 41.8 % (15-50); MCH 31.7 pg (26.0-34.0); MCHC 34.4 g/dL (31.0-37.0); MEAN PLATELET VOLUME 10.4 fL (7.4-10.4); MONOCYTES 6.4 % (2-11); PLATELET COUNT 259 10x3/uL (130-400); RBC 5.15 10x6/uL (4.20-6.10); RDW 13.1 % (11.5-14.5); WBC 16.5 10x3/uL (4.8-10.8)
[2018-11-12 01:26] LABS: CALC OSMOLALITY 286 mosm/kg (275-300); CALCIUM 9.3 mg/dL (8.5-10.1); CARBON DIOXIDE 30.7 mmol/L (21.0-32.0); CHLORIDE - SERUM 103 mmol/L (98-107); CREATININE - SERUM 1.1 mg/dL (0.6-1.3); POTASSIUM - SERUM 3.6 mmol/L (3.5-5.1); SODIUM 145 mmol/L (136-145); THYROID STIMULATING HORMONE 0.95 uIU/mL (0.36-3.74); UREA NITROGEN 17 mg/dL (7-18); eGFR NON AFRICAN AMERICAN 79 mL/min (90-120)
[2018-11-12 01:30] LABS: GLUCOSE 30 mg/dL (74-106)
[2018-11-12 02:51] LABS: APPEARANCE CLEAR (CLEAR); BACTERIA NONE SEEN /hpf (NONE SEEN); BILIRUBIN NEGATIVE (NEGATIVE); COLOR YELLOW (YELLOW); EPITHELIAL CELLS NSEEN /hpf (0-5); GLUCOSE NEGATIVE (NEGATIVE); KETONE NEGATIVE (NEGATIVE); NITRITE NEGATIVE (NEGATIVE); PROTEIN NEGATIVE (NEGATIVE); WHITE CELLS - URINE 0-5 /hpf (0-5)
[2018-11-12 02:56] LABS: UDS - AMPHET NEGATIVE QUAL (NEGATIVE); UDS - BARB NEGATIVE QUAL (NEGATIVE); UDS - BENZO NEGATIVE QUAL (NEGATIVE); UDS - COCAINE NEGATIVE QUAL (NEGATIVE); UDS - OPIATE NEGATIVE QUAL (NEGATIVE); UDS - PCP NEGATIVE QUAL (NEGATIVE); UDS - THC POSITIVE QUAL (NEGATIVE)
[2018-11-12 08:16] VITALS: BP 105/58
== END 2018-11-12 10:46 | disposition home or self-care (01) ==
LOC: D.ER 00:34
PROVIDERS: Family Medicine
DX: R45.851 Suicidal ideations (principal); E16.2 Hypoglycemia, unspecified; D72.829 Elevated white blood cell count, unspecified

== ENCOUNTER 2018-12-23 09:17 | Emergency (ER) | payer MEDICAID ==
[~2018-12-23] VITALS: Ht 185.4 cm; Wt 118.2 kg
[2018-12-23 09:21] VITALS: Ht 185.4 cm; Wt 118.2 kg
[2018-12-23] MEDS ORDERED: OTC POTASSIUM (09:23)
[2018-12-23 09:41] LABS: BASOPHILS 0.2 % (0-2); EOSINOPHILS 1.6 % (0-7); HEMATOCRIT 50.3 % (42.0-54.0); HEMOGLOBIN 17.8 g/dL (13.5-17.5); IMMATURE GRANULOCYTES 0.2 % (0-5); LYMPHOCYTES 39.6 % (15-50); MCH 31.3 pg (26.0-34.0); MCHC 35.4 g/dL (31.0-37.0); MCV 88.6 fL (80.0-100.0); MEAN PLATELET VOLUME 10.2 fL (7.4-10.4); MONOCYTES 8.2 % (2-11); NEUTROPHILS 50.2 % (40-80); PLATELET COUNT 272 10x3/uL (130-400); RBC 5.68 10x6/uL (4.20-6.10); RDW 13.3 % (11.5-14.5); WBC 11.7 10x3/uL (4.8-10.8)
[2018-12-23 09:58] LABS: ANION GAP 19.8 mmol/L (8-16); APPEARANCE SL CLDY (CLEAR); BACTERIA MODERATE /hpf (NONE SEEN); BILIRUBIN NEGATIVE (NEGATIVE); BILIRUBIN - TOTAL 1.18 mg/dL (0.2-1.3); CALCIUM 9.9 mg/dL (8.5-10.1); CARBON DIOXIDE 26.1 mmol/L (21.0-32.0); COLOR DK YELLOW (YELLOW); EPITHELIAL CELLS 0-5 /hpf (0-5); GLUCOSE NEGATIVE (NEGATIVE); KETONE NEGATIVE (NEGATIVE); MUCUS >1+ /lpf (NONE SEEN); NITRITE NEGATIVE (NEGATIVE); POTASSIUM - SERUM 3.9 mmol/L (3.5-5.1); PROTEIN 1+ mg/dL (NEGATIVE); PROTEIN - SERUM 9.8 g/dL (6.4-8.2); RED CELLS - URINE OCC /hpf (0-5); SPECIFIC GRAVITY 1.025 (1.005-1.020); UROBILINOGEN NORMAL (NORMAL); WHITE CELLS - URINE RARE /hpf (0-5)
[2018-12-23 09:59] LABS: CALCIUM OXALATE CRYSTALS 0-5 /hpf (NONE SEEN); HYALINE CAST 0-5 /lpf (NONE SEEN)
[2018-12-23 12:51] LABS: CKMB 6.1 U/L (0.0-3.6); CREATINE KINASE 990 UL (21-232)
[2018-12-23 13:10] LABS: UDS - AMPHET NEGATIVE QUAL (NEGATIVE); UDS - BARB NEGATIVE QUAL (NEGATIVE); UDS - BENZO NEGATIVE QUAL (NEGATIVE); UDS - COCAINE NEGATIVE QUAL (NEGATIVE); UDS - OPIATE NEGATIVE QUAL (NEGATIVE); UDS - PCP NEGATIVE QUAL (NEGATIVE); UDS - THC POSITIVE QUAL (NEGATIVE)
[2018-12-23 13:32] VITALS: BP 137/81
== END 2018-12-23 13:23 | disposition home or self-care (01) ==
LOC: D.ER 09:17
PROVIDERS: Family Medicine
DX: R25.2 Cramp and spasm (principal); K21.9 Gastro-esophageal reflux disease without esophagitis; N28.9 Disorder of kidney and ureter, unspecified

== ENCOUNTER 2019-01-25 10:43 | Emergency (ER) | payer MEDICAID ==
[~2019-01-25] VITALS: Ht 185.4 cm; Wt 127.3 kg
[~2019-01-25 10:43] MED LIST: OTC POTASSIUM
[2019-01-25 10:47] VITALS: Ht 185.4 cm; Wt 127.3 kg
[2019-01-25 11:16] LABS: HEMATOCRIT 42.5 % (42.0-54.0); HEMOGLOBIN 14.6 g/dL (13.5-17.5); MCH 31.5 pg (26.0-34.0); MCHC 34.4 g/dL (31.0-37.0); MCV 91.8 fL (80.0-100.0); MEAN PLATELET VOLUME 9.9 fL (7.4-10.4); PLATELET COUNT 237 10x3/uL (130-400); RBC 4.63 10x6/uL (4.20-6.10); RDW 13.8 % (11.5-14.5); WBC 7.4 10x3/uL (4.8-10.8)
[2019-01-25 11:51] LABS: ALBUMIN 4.2 g/dL (3.4-5.0); ALKALINE PHOSPHATASE 76 U/L (46-116); ALT (SGPT) 91 U/L (10-68); BILIRUBIN - TOTAL 0.45 mg/dL (0.2-1.3); CALC OSMOLALITY 273 mosm/kg (275-300); CALCIUM 9.1 mg/dL (8.5-10.1); CARBON DIOXIDE 32.4 mmol/L (21.0-32.0); CHLORIDE - SERUM 103 mmol/L (98-107); CREATINE KINASE 375 UL (21-232); LIPASE 107 U/L (73-393); MAGNESIUM - SERUM 2.2 mg/dL (1.8-2.4); POTASSIUM - SERUM 3.5 mmol/L (3.5-5.1); PRO BNP 33 pg/mL (0-125); PROTEIN - SERUM 7.6 g/dL (6.4-8.2); SODIUM 138 mmol/L (136-145); THYROID STIMULATING HORMONE 0.39 uIU/mL (0.36-3.74); TROPONIN-I < 0.017 ng/mL (0.000-0.060); UREA NITROGEN 17 mg/dL (7-18); eGFR NON AFRICAN AMERICAN 88 mL/min (90-120)
[2019-01-25 11:55] LABS: GLUCOSE 34 mg/dL (74-106)
[2019-01-25 11:55] LABS: UDS - AMPHET NEGATIVE QUAL (NEGATIVE); UDS - BARB NEGATIVE QUAL (NEGATIVE); UDS - BENZO NEGATIVE QUAL (NEGATIVE); UDS - COCAINE NEGATIVE QUAL (NEGATIVE); UDS - OPIATE NEGATIVE QUAL (NEGATIVE); UDS - PCP NEGATIVE QUAL (NEGATIVE); UDS - THC NEGATIVE QUAL (NEGATIVE)
[2019-01-25 11:57] LABS: APPEARANCE CLEAR (CLEAR); BILIRUBIN NEGATIVE (NEGATIVE); COLOR DK YELLOW (YELLOW); GLUCOSE NEGATIVE (NEGATIVE); KETONE NEGATIVE (NEGATIVE); NITRITE NEGATIVE (NEGATIVE); PROTEIN TRACE mg/dL (NEGATIVE)
[2019-01-25 11:57] LABS: CKMB 3.5 U/L (0.0-3.6)
[2019-01-25 11:58] LABS: BACTERIA FEW /hpf (NONE SEEN); EPITHELIAL CELLS OCC /hpf (0-5); MUCUS <1+ /lpf (NONE SEEN); RED CELLS - URINE OCC /hpf (0-5); WHITE CELLS - URINE RARE /hpf (0-5)
[2019-01-25 12:25] LABS: EOSINOPHILS 5 % (0-7); LYMPHOCYTES 49 % (15-50); MONOCYTES 7 % (2-11); NEUTROPHILS 37 % (40-80); PLATELET ESTIMATE NORMAL
[2019-01-25 12:42] VITALS: BP 126/87
== END 2019-01-25 12:43 | disposition home or self-care (01) ==
LOC: D.ER 10:43
PROVIDERS: Family Medicine
DX: E16.2 Hypoglycemia, unspecified (principal)

== ENCOUNTER 2019-02-12 15:29 | Emergency (ER) | payer MEDICAID ==
[2019-02-12 15:30] VITALS: BMI 33.0
[2019-02-12 16:22] LABS: BASOPHILS 0.2 % (0-2); EOSINOPHILS 0.5 % (0-7); HEMATOCRIT 41.6 % (42.0-54.0); HEMOGLOBIN 14.3 g/dL (13.5-17.5); IMMATURE GRANULOCYTES 0.4 % (0-5); LYMPHOCYTES 30.6 % (15-50); MCH 31.5 pg (26.0-34.0); MCHC 34.4 g/dL (31.0-37.0); MCV 91.6 fL (80.0-100.0); MEAN PLATELET VOLUME 9.9 fL (7.4-10.4); MONOCYTES 8.1 % (2-11); NEUTROPHILS 60.2 % (40-80); PLATELET COUNT 215 10x3/uL (130-400); RBC 4.54 10x6/uL (4.20-6.10); WBC 10.4 10x3/uL (4.8-10.8)
[2019-02-12 16:29] LABS: APTT 27.8 SECONDS (22.8-39.4); INR 1.12 (0.85-1.17); PROTIME 13.9 SECONDS (11.6-15.0)
[2019-02-12 16:35] LABS: ALBUMIN 4.1 g/dL (3.4-5.0); ALKALINE PHOSPHATASE 79 U/L (46-116); ALT (SGPT) 87 U/L (10-68); BILIRUBIN - TOTAL 0.73 mg/dL (0.2-1.3); CALC OSMOLALITY 282 mosm/kg (275-300); CALCIUM 9.1 mg/dL (8.5-10.1); CARBON DIOXIDE 26.6 mmol/L (21.0-32.0); CHLORIDE - SERUM 103 mmol/L (98-107); CREATININE - SERUM 1.2 mg/dL (0.6-1.3); POTASSIUM - SERUM 3.7 mmol/L (3.5-5.1); PROTEIN - SERUM 7.6 g/dL (6.4-8.2); SODIUM 140 mmol/L (136-145); UREA NITROGEN 20 mg/dL (7-18); eGFR NON AFRICAN AMERICAN 71 mL/min (90-120)
[2019-02-12 16:42] LABS: UDS - AMPHET POSITIVE QUAL (NEGATIVE); UDS - BARB NEGATIVE QUAL (NEGATIVE); UDS - BENZO NEGATIVE QUAL (NEGATIVE); UDS - COCAINE NEGATIVE QUAL (NEGATIVE); UDS - OPIATE NEGATIVE QUAL (NEGATIVE); UDS - PCP NEGATIVE QUAL (NEGATIVE); UDS - THC POSITIVE QUAL (NEGATIVE)
[2019-02-12 16:43] LABS: GLUCOSE 110 mg/dL (74-106)
[2019-02-12 16:46] LABS: CKMB 5.9 U/L (0.0-3.6); CREATINE KINASE 578 UL (21-232); MAGNESIUM - SERUM 2.1 mg/dL (1.8-2.4)
[2019-02-12 16:48] LABS: APPEARANCE CLEAR (CLEAR); BILIRUBIN NEGATIVE (NEGATIVE); COLOR YELLOW (YELLOW); GLUCOSE NEGATIVE (NEGATIVE); KETONE MODERATE mg/dL (NEGATIVE); NITRITE NEGATIVE (NEGATIVE); PROTEIN 2+ mg/dL (NEGATIVE); RED CELLS - URINE RARE /hpf (0-5); UROBILINOGEN NORMAL (NORMAL); WHITE CELLS - URINE NSEEN /hpf (0-5)
[2019-02-12 16:50] LABS: TROPONIN-I < 0.017 ng/mL (0.000-0.060)
--- NOTE | 2019-02-12 17:53 | NUR ---
DR. MARTÍNEZ NOTIFIED AND 1:1 SITTER OBSERVATION ORDERED. SITTER AT BEDSIDE. NOTIFIED CHARGE NURSE AND ATTENDING IN REGARDS TO ASSESSMENT FINDINGS. PT REFUSED RESOURCES STATING" MARCOS BEEN THROUGH ALL THIS SHIT BEFORE" SAFETY PLAN INTIATED.
[2019-02-13 05:10] VITALS: BP 120/67
== END 2019-02-13 05:34 ==
LOC: D.ER 15:29
PROVIDERS: Family Medicine
DX: R07.89 Other chest pain (principal); F15.10 Other stimulant abuse, uncomplicated; R45.851 Suicidal ideations

== ENCOUNTER 2019-04-27 13:35 | Emergency (ER) | payer MEDICAID ==
[~2019-04-27] VITALS: Ht 185.4 cm; Wt 109.1 kg
[2019-04-27 13:42] VITALS: Ht 185.4 cm; Wt 109.1 kg
[2019-04-27 14:03] LABS: BASOPHILS 0.1 % (0-2); EOSINOPHILS 0.7 % (0-7); HEMATOCRIT 46.7 % (42.0-54.0); HEMOGLOBIN 16.6 g/dL (13.5-17.5); IMMATURE GRANULOCYTES 0.1 % (0-5); LYMPHOCYTES 38.5 % (15-50); MCH 32.2 pg (26.0-34.0); MCHC 35.5 g/dL (31.0-37.0); MCV 90.5 fL (80.0-100.0); MEAN PLATELET VOLUME 9.5 fL (7.4-10.4); NEUTROPHILS 53.6 % (40-80); PLATELET COUNT 234 10x3/uL (130-400); RBC 5.16 10x6/uL (4.20-6.10); RDW 13.6 % (11.5-14.5); WBC 9.9 10x3/uL (4.8-10.8)
[2019-04-27 14:17] LABS: UDS - AMPHET POSITIVE QUAL (NEGATIVE); UDS - BARB NEGATIVE QUAL (NEGATIVE); UDS - BENZO NEGATIVE QUAL (NEGATIVE); UDS - COCAINE POSITIVE QUAL (NEGATIVE); UDS - OPIATE NEGATIVE QUAL (NEGATIVE); UDS - PCP NEGATIVE QUAL (NEGATIVE); UDS - THC POSITIVE QUAL (NEGATIVE)
[2019-04-27 14:22] LABS: ALBUMIN 4.5 g/dL (3.4-5.0); BILIRUBIN - TOTAL 0.69 mg/dL (0.2-1.3); CALCIUM 10.5 mg/dL (8.5-10.1); CREATININE - SERUM 1.4 mg/dL (0.6-1.3); MAGNESIUM - SERUM 2.1 mg/dL (1.8-2.4); POTASSIUM - SERUM 4.4 mmol/L (3.5-5.1); PROTEIN - SERUM 8.6 g/dL (6.4-8.2)
[2019-04-27 14:28] LABS: ANION GAP 16.8 mmol/L (8-16); CARBON DIOXIDE 27.6 mmol/L (21.0-32.0)
[2019-04-27 14:50] LABS: APPEARANCE CLEAR (CLEAR); COLOR DK YELLOW (YELLOW)
[2019-04-27 14:58] LABS: BILIRUBIN NEGATIVE (NEGATIVE); GLUCOSE NEGATIVE (NEGATIVE); KETONE SMALL mg/dL (NEGATIVE); NITRITE NEGATIVE (NEGATIVE); PROTEIN TRACE mg/dL (NEGATIVE); SPECIFIC GRAVITY 1.025 (1.005-1.020); UROBILINOGEN NORMAL (NORMAL)
[2019-04-27 15:00] LABS: BACTERIA MODERATE /hpf (NONE SEEN); RED CELLS - URINE 0-5 /hpf (0-5); WHITE CELLS - URINE OCC /hpf (0-5)
--- NOTE | 2019-04-27 15:35 | NUR ---
PT SCORED A HIGH RISK. REPORTED TO ATTENDING AND DR. ALDANA. MISBAH ORDERED AND SUICIDE WATCH. SAFETY PLAN INITIATED BUT PT REFUSED TO SIGN IT. PT ADMITS TO DRUG USE AND ALCOHOL ABUSE. MISBAH WAS AT BEDSIDE WHEN I ARRIVED. PT IN PAPERSCRUBS AND BELONGINGS AT DESK.
--- NOTE | 2019-04-28 04:46 | NUR ---
PATIENT REASSESSED AFTER PATIENT STATING THAT HE DOES NOT HAVE INTENTION ON HARMING HIMSELF. PATIENT STATED THAT HE WAS HIGH ON DRUGS AND CRACHING WHEN HE STATED THAT HE WANTED TO HARM HIMSELF. PATIENT ASSESSMENT DISCUSED WITH ATTENDING AND HIS E.D. NURSE, PATIENT HAD STATED TO BOTH THAT HE WAS NOT SUICIDAL AND ONLY NEED HELP WITH HIS DRUG ADDICTION.
[2019-04-28 08:54] VITALS: BP 108/67
== END 2019-04-27 22:47 ==
LOC: D.ER 13:35
PROVIDERS: Emergency Medicine
DX: R45.851 Suicidal ideations (principal); R45.850 Homicidal ideations; F15.10 Other stimulant abuse, uncomplicated; F14.10 Cocaine abuse, uncomplicated; F17.200 Nicotine dependence, unspecified, uncomplicated; I10 Essential (primary) hypertension

== ENCOUNTER 2019-05-12 23:06 | Emergency (ER) | payer MEDICAID ==
[~2019-05-12] VITALS: Ht 185.4 cm; Wt 90.9 kg
[2019-05-12 23:07] VITALS: BP 153/90; Ht 185.4 cm; Wt 90.9 kg
[2019-05-12 23:34] LABS: BASOPHILS 0.2 % (0-2); EOSINOPHILS 1.3 % (0-7); HEMATOCRIT 41.5 % (42.0-54.0); HEMOGLOBIN 14.7 g/dL (13.5-17.5); IMMATURE GRANULOCYTES 0.2 % (0-5); LYMPHOCYTES 33.5 % (15-50); MCH 31.5 pg (26.0-34.0); MCHC 35.4 g/dL (31.0-37.0); MCV 89.1 fL (80.0-100.0); MEAN PLATELET VOLUME 10.9 fL (7.4-10.4); MONOCYTES 6.2 % (2-11); NEUTROPHILS 58.6 % (40-80); PLATELET COUNT 190 10x3/uL (130-400); RBC 4.66 10x6/uL (4.20-6.10); RDW 13.3 % (11.5-14.5); WBC 9.4 10x3/uL (4.8-10.8)
[2019-05-12 23:48] LABS: ALBUMIN 4.4 g/dL (3.4-5.0); ALKALINE PHOSPHATASE 74 U/L (46-116); ALT (SGPT) 50 U/L (10-68); BILIRUBIN - TOTAL 0.42 mg/dL (0.2-1.3); CALC OSMOLALITY 284 mosm/kg (275-300); CALCIUM 9.2 mg/dL (8.5-10.1); CARBON DIOXIDE 26.6 mmol/L (21.0-32.0); CHLORIDE - SERUM 103 mmol/L (98-107); CREATININE - SERUM 1.5 mg/dL (0.6-1.3); GLUCOSE 90 mg/dL (74-106); POTASSIUM - SERUM 3.4 mmol/L (3.5-5.1); PROTEIN - SERUM 7.9 g/dL (6.4-8.2); SODIUM 143 mmol/L (136-145); UREA NITROGEN 12 mg/dL (7-18); eGFR NON AFRICAN AMERICAN 55 mL/min (90-120)
[2019-05-12 23:52] LABS: AMYLASE - SERUM 90 U/L (25-115); LIPASE 201 U/L (73-393); TROPONIN-I < 0.017 ng/mL (0.000-0.060)
== END 2019-05-13 00:15 | disposition home or self-care (01) ==
LOC: D.ER 23:06
PROVIDERS: Emergency Medicine
DX: R10.9 Unspecified abdominal pain (principal)

== ENCOUNTER 2019-07-05 02:03 | Emergency (ER) | payer MEDICAID ==
[~2019-07-05] VITALS: Ht 185.4 cm; Wt 109.1 kg
[2019-07-05 02:12] VITALS: Ht 185.4 cm; Wt 109.1 kg
[2019-07-05 02:34] LABS: BASOPHILS 0.2 % (0-2); EOSINOPHILS 2.6 % (0-7); HEMATOCRIT 46.3 % (42.0-54.0); HEMOGLOBIN 16.1 g/dL (13.5-17.5); IMMATURE GRANULOCYTES 0.3 % (0-5); LYMPHOCYTES 42.3 % (15-50); MCHC 34.8 g/dL (31.0-37.0); MCV 94.9 fL (80.0-100.0); MEAN PLATELET VOLUME 10.2 fL (7.4-10.4); MONOCYTES 6.2 % (2-11); NEUTROPHILS 48.4 % (40-80); RBC 4.88 10x6/uL (4.20-6.10); WBC 11.2 10x3/uL (4.8-10.8)
[2019-07-05 02:35] LABS: PLATELET COUNT 266 10x3/uL (130-400)
[2019-07-05 02:39] LABS: CALC OSMOLALITY 278 mosm/kg (275-300); CALCIUM 9.3 mg/dL (8.5-10.1); CARBON DIOXIDE 32.7 mmol/L (21.0-32.0); CHLORIDE - SERUM 103 mmol/L (98-107); GLUCOSE 73 mg/dL (74-106); POTASSIUM - SERUM 3.8 mmol/L (3.5-5.1); SODIUM 140 mmol/L (136-145); UREA NITROGEN 14 mg/dL (7-18); eGFR NON AFRICAN AMERICAN 88 mL/min (90-120)
[2019-07-05 02:40] LABS: UDS - AMPHET NEGATIVE QUAL (NEGATIVE); UDS - BARB NEGATIVE QUAL (NEGATIVE); UDS - BENZO NEGATIVE QUAL (NEGATIVE); UDS - COCAINE NEGATIVE QUAL (NEGATIVE); UDS - OPIATE NEGATIVE QUAL (NEGATIVE); UDS - PCP NEGATIVE QUAL (NEGATIVE); UDS - THC POSITIVE QUAL (NEGATIVE)
[2019-07-05 02:44] LABS: ALBUMIN 4.5 g/dL (3.4-5.0); ALKALINE PHOSPHATASE 77 U/L (46-116); ALT (SGPT) 98 U/L (10-68); PROTEIN - SERUM 8.4 g/dL (6.4-8.2)
[2019-07-05 02:50] LABS: APPEARANCE CLEAR (CLEAR); BILIRUBIN NEGATIVE (NEGATIVE); COLOR YELLOW (YELLOW); GLUCOSE NEGATIVE (NEGATIVE); KETONE NEGATIVE (NEGATIVE); NITRITE NEGATIVE (NEGATIVE); PROTEIN NEGATIVE (NEGATIVE); UROBILINOGEN NORMAL (NORMAL)
[2019-07-05 02:52] LABS: BACTERIA FEW /hpf (NEGATIVE); EPITHELIAL CELLS 0-5 /hpf (0-5); RED CELLS - URINE 0-5 /hpf (0-5); WHITE CELLS - URINE 0-5 /hpf (NEGATIVE)
--- NOTE | 2019-07-05 03:11 | NUR ---
DR. ALDANA NOTIFIED AND SITTER ORDERED. SITTER AT BEDSIDE. NOTIFIED CHARGE NURSE AND ATTENDING IN REGARDS TO ASSESSMENT FINDINGS. RESOURCES GIVEN TO PT AND SAFETY PLAN INITIATED.
[2019-07-05 05:07] VITALS: BP 129/89
== END 2019-07-05 08:19 ==
LOC: D.ER 02:03
PROVIDERS: Family Medicine
DX: R45.851 Suicidal ideations (principal)

== ENCOUNTER 2020-01-17 04:20 | Emergency (ER) | payer MEDICAID ==
[~2020-01-17] VITALS: Ht 185.4 cm; Wt 109.1 kg
[2020-01-17 04:27] VITALS: Ht 185.4 cm; Wt 109.1 kg
--- NOTE | 2020-01-17 05:21 | NUR ---
DR. ALDANA NOTIFIED AND SITTER ORDERED. SITTER AT BEDSIDE. NOTIFIED CHARGE NURSE AND ATTENDING IN REGARDS TO ASSESSMENT FINDINGS. RESOURCES GIVEN TO PT AND SAFETY PLAM INITIATED.
[2020-01-17 06:46] LABS: BASOPHILS 0.3 % (0-2); EOSINOPHILS 1.6 % (0-7); HEMATOCRIT 45.5 % (42.0-54.0); IMMATURE GRANULOCYTES 0.1 % (0-5); LYMPHOCYTES 44.5 % (15-50); MCH 31.9 pg (26.0-34.0); MCV 96.8 fL (80.0-100.0); MEAN PLATELET VOLUME 10.3 fL (7.4-10.4); MONOCYTES 6.3 % (2-11); NEUTROPHILS 47.2 % (40-80); PLATELET COUNT 227 10x3/uL (130-400); RDW 13.7 % (11.5-14.5); WBC 6.7 10x3/uL (4.8-10.8)
[2020-01-17 06:52] LABS: CALC OSMOLALITY 279 mosm/kg (275-300); CALCIUM 8.9 mg/dL (8.5-10.1); CARBON DIOXIDE 28.7 mmol/L (21.0-32.0); CHLORIDE - SERUM 104 mmol/L (98-107); GLUCOSE 105 mg/dL (74-106); POTASSIUM - SERUM 3.7 mmol/L (3.5-5.1); SODIUM 140 mmol/L (136-145); UREA NITROGEN 16 mg/dL (7-18); eGFR NON AFRICAN AMERICAN 87 mL/min (90-120)
[2020-01-17 06:58] LABS: ALKALINE PHOSPHATASE 74 U/L (30-120); ALT (SGPT) 116 U/L (10-68); BILIRUBIN - TOTAL 0.76 mg/dL (0.2-1.3); PROTEIN - SERUM 7.6 g/dL (6.4-8.2)
[2020-01-17 07:19] LABS: UDS - AMPHET POSITIVE QUAL (NEGATIVE); UDS - BARB NEGATIVE QUAL (NEGATIVE); UDS - BENZO NEGATIVE QUAL (NEGATIVE); UDS - COCAINE NEGATIVE QUAL (NEGATIVE); UDS - OPIATE NEGATIVE QUAL (NEGATIVE); UDS - PCP NEGATIVE QUAL (NEGATIVE); UDS - THC POSITIVE QUAL (NEGATIVE)
[2020-01-17 07:20] LABS: BILIRUBIN NEGATIVE (NEGATIVE); GLUCOSE NEGATIVE (NEGATIVE); KETONE SMALL mg/dL (NEGATIVE); NITRITE NEGATIVE (NEGATIVE); SPECIFIC GRAVITY 1.025 (1.005-1.020); UROBILINOGEN NORMAL (NORMAL)
[2020-01-17 07:22] LABS: AMORPHOUS SEDIMENT >1+ /lpf (NONE SEEN); BACTERIA FEW /hpf (NEGATIVE); EPITHELIAL CELLS OCC /hpf (0-5); GRANULAR CAST 0-5 /lpf (NONE SEEN); RED CELLS - URINE 0-5 /hpf (0-5); WHITE CELLS - URINE RARE /hpf (NEGATIVE)
[2020-01-17 09:23] VITALS: BP 124/79
== END 2020-01-17 10:51 ==
LOC: D.ER 04:20
PROVIDERS: Family Medicine
DX: R45.851 Suicidal ideations (principal); F15.10 Other stimulant abuse, uncomplicated

== ENCOUNTER 2020-02-09 15:25 | Emergency (ER) | payer MEDICAID ==
[~2020-02-09] VITALS: Ht 185.4 cm; Wt 86.4 kg
[2020-02-09 15:42] VITALS: Ht 185.4 cm; Wt 86.4 kg
[2020-02-09 16:25] LABS: BASOPHILS 0.5 % (0-2); EOSINOPHILS 1.8 % (0-7); HEMOGLOBIN 15.3 g/dL (13.5-17.5); IMMATURE GRANULOCYTES 0.2 % (0-5); MCH 32.3 pg (26.0-34.0); MCV 95.1 fL (80.0-100.0); MEAN PLATELET VOLUME 10.4 fL (7.4-10.4); NEUTROPHILS 53.5 % (40-80); PLATELET COUNT 241 10x3/uL (130-400); RBC 4.73 10x6/uL (4.20-6.10); RDW 13.1 % (11.5-14.5); WBC 6.5 10x3/uL (4.8-10.8)
[2020-02-09 16:41] LABS: CALC OSMOLALITY 282 mosm/kg (275-300); CARBON DIOXIDE 30.1 mmol/L (21.0-32.0); CHLORIDE - SERUM 105 mmol/L (98-107); GLUCOSE 72 mg/dL (74-106); POTASSIUM - SERUM 3.6 mmol/L (3.5-5.1); SODIUM 142 mmol/L (136-145); UREA NITROGEN 14 mg/dL (7-18); eGFR NON AFRICAN AMERICAN 87 mL/min (90-120)
[2020-02-09 16:44] LABS: ALBUMIN 3.9 g/dL (3.4-5.0); ALKALINE PHOSPHATASE 67 U/L (30-120); ALT (SGPT) 31 U/L (10-68); BILIRUBIN - TOTAL 0.41 mg/dL (0.2-1.3); MAGNESIUM - SERUM 1.8 mg/dL (1.8-2.4); PROTEIN - SERUM 7.4 g/dL (6.4-8.2)
[2020-02-09 16:50] LABS: BILIRUBIN NEGATIVE (NEGATIVE); GLUCOSE NEGATIVE (NEGATIVE); KETONE NEGATIVE (NEGATIVE); NITRITE NEGATIVE (NEGATIVE); RED CELLS - URINE 0-5 /hpf (0-5); SPECIFIC GRAVITY 1.025 (1.005-1.020); UROBILINOGEN NORMAL (NORMAL); WHITE CELLS - URINE NSEEN /hpf (NEGATIVE)
[2020-02-09 16:51] LABS: BACTERIA FEW /hpf (NEGATIVE); EPITHELIAL CELLS 0-5 /hpf (0-5)
[2020-02-09 17:25] LABS: UDS - AMPHET NEGATIVE QUAL (NEGATIVE); UDS - BARB NEGATIVE QUAL (NEGATIVE); UDS - BENZO NEGATIVE QUAL (NEGATIVE); UDS - COCAINE NEGATIVE QUAL (NEGATIVE); UDS - OPIATE NEGATIVE QUAL (NEGATIVE); UDS - PCP NEGATIVE QUAL (NEGATIVE); UDS - THC POSITIVE QUAL (NEGATIVE)
--- NOTE | 2020-02-09 19:10 | NUR ---
DR. ALDANA NOTIFIED AND SITTER ORDERED. SITTER IN LINE OF SIGHT. NOTIFIED CHARGE NURSE AND ATTENDING IN REGARDS TO ASSESSMENT FINDINGS. RESOURCES GIVEN TO PT AND SAFETY PLAN INTIATED.
[2020-02-09 21:26] VITALS: BP 134/76
== END 2020-02-09 21:26 ==
LOC: D.ER 15:25
PROVIDERS: Family Medicine
DX: R45.851 Suicidal ideations (principal); F20.9 Schizophrenia, unspecified

== ENCOUNTER 2020-02-27 11:23 | Emergency (ER) | payer MEDICAID ==
[~2020-02-27] VITALS: Ht 185.4 cm; Wt 127.3 kg
[2020-02-27 11:24] VITALS: Ht 185.4 cm; Wt 127.3 kg
[2020-02-27 12:01] LABS: HEMATOCRIT 42.7 % (42.0-54.0); HEMOGLOBIN 14.3 g/dL (13.5-17.5); LYMPHOCYTES 47.9 % (15-50); MCH 31.8 pg (26.0-34.0); MCHC 33.5 g/dL (31.0-37.0); MCV 94.9 fL (80.0-100.0); MEAN PLATELET VOLUME 9.9 fL (7.4-10.4); PLATELET COUNT 223 10x3/uL (130-400); RDW 13.2 % (11.5-14.5)
[2020-02-27 12:19] LABS: INR 1.58 (0.85-1.17); PROTIME 18.7 SECONDS (11.6-15.0)
[2020-02-27 12:21] LABS: APTT 89.9 SECONDS (22.8-39.4)
[2020-02-27 12:41] VITALS: BP 114/77
[2020-02-27 12:47] LABS: ALBUMIN 3.5 g/dL (3.4-5.0); ALKALINE PHOSPHATASE 66 U/L (30-120); ALT (SGPT) 59 U/L (10-68); CALC OSMOLALITY 284 mosm/kg (275-300); CALCIUM 8.8 mg/dL (8.5-10.1); CARBON DIOXIDE 31.7 mmol/L (21.0-32.0); CHLORIDE - SERUM 107 mmol/L (98-107); CKMB 1.1 U/L (0.0-3.6); CREATINE KINASE 148 UL (21-232); MAGNESIUM - SERUM 2.1 mg/dL (1.8-2.4); POTASSIUM - SERUM 4.1 mmol/L (3.5-5.1); PROTEIN - SERUM 6.6 g/dL (6.4-8.2); SODIUM 144 mmol/L (136-145); TROPONIN-I < 0.017 ng/mL (0.000-0.060); UREA NITROGEN 14 mg/dL (7-18); eGFR NON AFRICAN AMERICAN 87 mL/min (90-120)
[2020-02-27 12:51] LABS: GLUCOSE 37 mg/dL (74-106)
== END 2020-02-27 13:46 | disposition home or self-care (01) ==
LOC: D.ER 11:23
PROVIDERS: Family Medicine
DX: E16.2 Hypoglycemia, unspecified (principal); R42 Dizziness and giddiness

== ENCOUNTER 2020-03-20 18:54 | Emergency (ER) | payer MEDICAID ==
[~2020-03-20] VITALS: Ht 185.4 cm; Wt 90.9 kg
[2020-03-20 19:15] VITALS: BP 129/84; Ht 185.4 cm; Wt 90.9 kg
[2020-03-20 19:34] LABS: BASOPHILS 0.1 % (0-2); EOSINOPHILS 1.4 % (0-7); HEMATOCRIT 43.4 % (42.0-54.0); HEMOGLOBIN 14.6 g/dL (13.5-17.5); IMMATURE GRANULOCYTES 0.2 % (0-5); LYMPHOCYTES 30.2 % (15-50); MCH 31.4 pg (26.0-34.0); MCHC 33.6 g/dL (31.0-37.0); MCV 93.3 fL (80.0-100.0); MEAN PLATELET VOLUME 9.7 fL (7.4-10.4); MONOCYTES 5.1 % (2-11); PLATELET COUNT 246 10x3/uL (130-400); RBC 4.65 10x6/uL (4.20-6.10); WBC 9.9 10x3/uL (4.8-10.8)
[2020-03-20 19:39] LABS: BILIRUBIN NEGATIVE (NEGATIVE); GLUCOSE NEGATIVE (NEGATIVE); KETONE NEGATIVE (NEGATIVE); NITRITE NEGATIVE (NEGATIVE); UROBILINOGEN NORMAL (NORMAL)
[2020-03-20 19:47] LABS: CALC OSMOLALITY 281 mosm/kg (275-300); CALCIUM 9.2 mg/dL (8.5-10.1); CARBON DIOXIDE 28.8 mmol/L (21.0-32.0); CHLORIDE - SERUM 103 mmol/L (98-107); CREATININE - SERUM 1.1 mg/dL (0.6-1.3); POTASSIUM - SERUM 3.6 mmol/L (3.5-5.1); SODIUM 139 mmol/L (136-145); UREA NITROGEN 19 mg/dL (7-18); eGFR NON AFRICAN AMERICAN 78 mL/min (90-120)
[2020-03-20 19:50] LABS: UDS - AMPHET POSITIVE QUAL (NEGATIVE); UDS - BARB NEGATIVE QUAL (NEGATIVE); UDS - BENZO NEGATIVE QUAL (NEGATIVE); UDS - COCAINE NEGATIVE QUAL (NEGATIVE); UDS - OPIATE NEGATIVE QUAL (NEGATIVE); UDS - PCP NEGATIVE QUAL (NEGATIVE); UDS - THC POSITIVE QUAL (NEGATIVE)
[2020-03-20 19:52] LABS: GLUCOSE 143 mg/dL (74-106)
[2020-03-20 19:53] LABS: ALBUMIN 3.9 g/dL (3.4-5.0); ALKALINE PHOSPHATASE 91 U/L (30-120); ALT (SGPT) 165 U/L (10-68); BILIRUBIN - TOTAL 0.34 mg/dL (0.2-1.3); PROTEIN - SERUM 7.5 g/dL (6.4-8.2)
--- NOTE | 2020-03-20 21:22 | NUR ---
DR ALDANA NOTIFIED AND REVIEWED PT BEHAVIOR AND ASSESSMENT RESULTS. PT IS A LOW RISK PER DR ALDANA. DR ALDANA STATED TO GIVE RESOURCES TO PT AT TIME OF DISCHARGE. NO FURTHER ORDERS AT THIS TIME. RESOURCES REVIEWED WITH PT AND HE VERBALIZED UNDERSTANDING.
[2020-03-20] MEDS ORDERED: THORAZINE50 MG PO (21:36)
== END 2020-03-20 21:44 | disposition home or self-care (01) ==
LOC: D.ER 18:54
PROVIDERS: Family Medicine
DX: F30.9 Manic episode, unspecified (principal)

== ENCOUNTER 2020-03-21 12:46 | Emergency (ER) | payer MEDICAID ==
[~2020-03-21] VITALS: Ht 185.4 cm; Wt 127.3 kg
[~2020-03-21 12:46] MED LIST changes: +THORAZINE50 MG PO
[2020-03-21 13:08] VITALS: BP 107/67; Ht 185.4 cm; Wt 127.3 kg
[2020-03-21 13:43] LABS: BASOPHILS 0.1 % (0-2); EOSINOPHILS 2.1 % (0-7); HEMATOCRIT 42.8 % (42.0-54.0); HEMOGLOBIN 14.4 g/dL (13.5-17.5); IMMATURE GRANULOCYTES 0.1 % (0-5); LYMPHOCYTES 41.6 % (15-50); MCH 31.4 pg (26.0-34.0); MCHC 33.6 g/dL (31.0-37.0); MCV 93.4 fL (80.0-100.0); MEAN PLATELET VOLUME 9.6 fL (7.4-10.4); MONOCYTES 5.4 % (2-11); NEUTROPHILS 50.7 % (40-80); PLATELET COUNT 233 10x3/uL (130-400); RBC 4.58 10x6/uL (4.20-6.10); RDW 13.9 % (11.5-14.5)
[2020-03-21 13:46] LABS: WBC 7.2 10x3/uL (4.8-10.8)
[2020-03-21 13:49] LABS: ANION GAP 9.8 mmol/L (8-16); CALCIUM 8.8 mg/dL (8.5-10.1); CARBON DIOXIDE 30.4 mmol/L (21.0-32.0); CREATININE - SERUM 1.2 mg/dL (0.6-1.3)
[2020-03-21 13:50] LABS: POTASSIUM - SERUM 4.2 mmol/L (3.5-5.1)
[2020-03-21 13:55] LABS: ALBUMIN 3.9 g/dL (3.4-5.0); BILIRUBIN - TOTAL 0.53 mg/dL (0.2-1.3); PROTEIN - SERUM 7.2 g/dL (6.4-8.2)
[2020-03-21 13:59] LABS: BILIRUBIN NEGATIVE (NEGATIVE); GLUCOSE NEGATIVE (NEGATIVE); KETONE NEGATIVE (NEGATIVE); NITRITE NEGATIVE (NEGATIVE); SPECIFIC GRAVITY 1.025 (1.005-1.020)
[2020-03-21 14:00] LABS: BACTERIA FEW /hpf (NEGATIVE); EPITHELIAL CELLS OCC /hpf (0-5); RED CELLS - URINE NONE SEEN /hpf (0-5); WHITE CELLS - URINE OCC /hpf (NEGATIVE)
[2020-03-21 14:10] LABS: UDS - AMPHET POSITIVE QUAL (NEGATIVE); UDS - BARB NEGATIVE QUAL (NEGATIVE); UDS - BENZO NEGATIVE QUAL (NEGATIVE); UDS - COCAINE NEGATIVE QUAL (NEGATIVE); UDS - OPIATE NEGATIVE QUAL (NEGATIVE); UDS - PCP NEGATIVE QUAL (NEGATIVE); UDS - THC POSITIVE QUAL (NEGATIVE)
--- NOTE | 2020-03-21 14:28 | NUR ---
DR. ALDANA NOTIFIED AND REVIEWED PTS BEHAVIOR AND ASSESSMENT RESULTS. PT IS A LOW RISK PER DR. ALDANA. PT DENIES SI AT THIS TIME. DR. ALDANA STATED TO GIVE RESOURCES TO PT AT THIS TIME. NO FURTHER ORDERS AT THIS TIME. RESOURCES REVIEWED WITH PT AND HE VERBALIZED UNDERSTANDING.
== END 2020-03-21 14:30 | disposition home or self-care (01) ==
LOC: D.ER 12:46
PROVIDERS: Family Medicine
DX: Z76.5 Malingerer [conscious simulation] (principal); R45.851 Suicidal ideations

== ENCOUNTER 2020-04-16 18:27 | Emergency (ER) | payer MEDICAID ==
[~2020-04-16] VITALS: Ht 185.4 cm; Wt 127.3 kg
[2020-04-16 18:33] VITALS: BP 145/90; Ht 185.4 cm; Wt 127.3 kg
== END 2020-04-16 19:08 | disposition home or self-care (01) ==
LOC: D.ER 18:27
DX: Z76.5 Malingerer [conscious simulation] (principal); R45.851 Suicidal ideations

== ENCOUNTER 2020-11-14 21:38 | Emergency (ER) | payer MEDICAID ==
[~2020-11-14] VITALS: Ht 185.4 cm; Wt 127.3 kg
[2020-11-14 21:48] VITALS: Ht 185.4 cm; Wt 127.3 kg
[2020-11-14 22:17] LABS: BILIRUBIN NEGATIVE (NEGATIVE); KETONE NEGATIVE (NEGATIVE); NITRITE NEGATIVE (NEGATIVE); UROBILINOGEN NORMAL mg/dL (< 2)
[2020-11-14 22:25] LABS: UDS - AMPHET POSITIVE QUAL (NEGATIVE); UDS - BARB NEGATIVE QUAL (NEGATIVE); UDS - BENZO NEGATIVE QUAL (NEGATIVE); UDS - COCAINE NEGATIVE QUAL (NEGATIVE); UDS - OPIATE NEGATIVE QUAL (NEGATIVE); UDS - PCP NEGATIVE QUAL (NEGATIVE); UDS - THC POSITIVE QUAL (NEGATIVE)
[2020-11-14 22:31] LABS: BASOPHILS 0.2 % (0-2); EOSINOPHILS 1.1 % (0-7); HEMATOCRIT 46.3 % (42.0-54.0); HEMOGLOBIN 15.9 g/dL (13.5-17.5); IMMATURE GRANULOCYTES 0.1 % (0-5); LYMPHOCYTES 26.1 % (15-50); MCH 31.7 pg (26.0-34.0); MCHC 34.3 g/dL (31.0-37.0); MCV 92.2 fL (80.0-100.0); MONOCYTES 9.4 % (2-11); NEUTROPHIL ABS# 6.29 10x3/uL (1.78-5.38); NEUTROPHILS 63.1 % (40-80); PLATELET COUNT 233 10x3/uL (130-400); RBC 5.02 10x6/uL (4.20-6.10); RDW 13.1 % (11.5-14.5)
[2020-11-14 22:41] LABS: CALC OSMOLALITY 281 mosm/kg (275-300); CALCIUM 9.3 mg/dL (8.5-10.1); CARBON DIOXIDE 28.1 mmol/L (21.0-32.0); CHLORIDE - SERUM 101 mmol/L (98-107); CREATININE - SERUM 1.2 mg/dL (0.6-1.3); POTASSIUM - SERUM 4.2 mmol/L (3.5-5.1); SODIUM 138 mmol/L (136-145); UREA NITROGEN 35 mg/dL (7-18); eGFR NON AFRICAN AMERICAN 71 mL/min (90-120)
[2020-11-14 22:42] LABS: GLUCOSE 69 mg/dL (74-106)
[2020-11-14 23:04] LABS: ALBUMIN 4.6 g/dL (3.4-5.0); ALKALINE PHOSPHATASE 82 U/L (30-120); ALT (SGPT) 81 U/L (10-68); BILIRUBIN - TOTAL 0.91 mg/dL (0.2-1.3); LIPASE 65 U/L (73-393); MAGNESIUM - SERUM 2.6 mg/dL (1.8-2.4); PRO BNP 31 pg/mL (0-125); PROTEIN - SERUM 8.6 g/dL (6.4-8.2); THYROID STIMULATING HORMONE 1.07 uIU/mL (0.36-3.74); TROPONIN-I < 0.017 ng/mL (0.000-0.060)
[2020-11-14 23:09] LABS: CREATINE KINASE 1827 UL (21-232)
[2020-11-14 23:10] LABS: CKMB 13.9 U/L (0.0-3.6)
[2020-11-15 05:10] VITALS: BP 97/43
[2020-11-15 05:54] LABS: CREATINE KINASE 1264 UL (21-232)
[2020-11-15 05:55] LABS: CKMB 9.7 U/L (0.0-3.6)
== END 2020-11-15 06:37 | disposition home or self-care (01) ==
LOC: D.ER 21:38
PROVIDERS: Family Medicine
DX: F15.10 Other stimulant abuse, uncomplicated (principal); M62.82 Rhabdomyolysis; R05 Cough; R45.851 Suicidal ideations

== ENCOUNTER 2020-11-26 13:32 | Emergency (ER) | payer MEDICAID ==
[~2020-11-26] VITALS: Ht 185.4 cm; Wt 127.3 kg
[2020-11-26 13:41] VITALS: Ht 185.4 cm; Wt 127.3 kg
[2020-11-26 14:22] LABS: BASOPHILS 0.2 % (0-2); CALC OSMOLALITY 265 mosm/kg (275-300); CALCIUM 8.8 mg/dL (8.5-10.1); CARBON DIOXIDE 27.8 mmol/L (21.0-32.0); CHLORIDE - SERUM 99 mmol/L (98-107); CREATININE - SERUM 0.9 mg/dL (0.6-1.3); EOSINOPHILS 1.8 % (0-7); GLUCOSE 84 mg/dL (74-106); HEMATOCRIT 43.8 % (42.0-54.0); HEMOGLOBIN 14.9 g/dL (13.5-17.5); IMMATURE GRANULOCYTES 0.1 % (0-5); LYMPHOCYTE ABS# 3.44 10x3/uL (1.32-3.57); LYMPHOCYTES 41.6 % (15-50); MCH 31.3 pg (26.0-34.0); MEAN PLATELET VOLUME 9.6 fL (7.4-10.4); MONOCYTES 7.3 % (2-11); NEUTROPHIL ABS# 4.04 10x3/uL (1.78-5.38); PLATELET COUNT 260 10x3/uL (130-400); POTASSIUM - SERUM 3.9 mmol/L (3.5-5.1); RBC 4.76 10x6/uL (4.20-6.10); RDW 13.2 % (11.5-14.5); SODIUM 134 mmol/L (136-145); UREA NITROGEN 11 mg/dL (7-18); WBC 8.3 10x3/uL (4.8-10.8); eGFR NON AFRICAN AMERICAN > 90 mL/min (90-120)
[2020-11-26 14:26] LABS: UDS - AMPHET POSITIVE QUAL (NEGATIVE); UDS - BARB NEGATIVE QUAL (NEGATIVE); UDS - BENZO NEGATIVE QUAL (NEGATIVE); UDS - COCAINE NEGATIVE QUAL (NEGATIVE); UDS - OPIATE NEGATIVE QUAL (NEGATIVE); UDS - PCP NEGATIVE QUAL (NEGATIVE); UDS - THC POSITIVE QUAL (NEGATIVE)
[2020-11-26 14:32] LABS: ALBUMIN 3.9 g/dL (3.4-5.0); ALKALINE PHOSPHATASE 77 U/L (30-120); ALT (SGPT) 50 U/L (10-68); BILIRUBIN - TOTAL 0.56 mg/dL (0.2-1.3); MAGNESIUM - SERUM 2.1 mg/dL (1.8-2.4); PROTEIN - SERUM 7.6 g/dL (6.4-8.2)
--- NOTE | 2020-11-26 14:40 | NUR ---
DR. ALDANA NOTIFIED AND SITTER ORDERED. SITTER AT BEDSIDE. NOTIFIED CHARGE NURSE AND ATTENDING MD REGARDS TO ASSESSMENT FINDINGS. RESOURCES GIVEN TO PT AND PT REFUSED SAFETY PLAN AT THIS TIME.
[2020-11-26 14:54] LABS: BILIRUBIN NEGATIVE (NEGATIVE); KETONE NEGATIVE (NEGATIVE); NITRITE NEGATIVE (NEGATIVE); UROBILINOGEN NORMAL mg/dL (< 2)
[2020-11-26 14:56] LABS: BACTERIA FEW HPF (NONE SEEN); SQUAMOUS EPITHELIAL OCC HPF (0-4); WHITE CELLS - URINE RARE HPF (0-1)
[2020-11-26 19:59] LABS: SARS-CoV-2 ANTIGEN NEGATIVE- SARS-COV-2 (NEGATIVE)
[2020-11-27 01:09] VITALS: BP 136/88
== END 2020-11-27 01:10 ==
LOC: D.ER 13:32
PROVIDERS: Family Medicine
DX: R45.851 Suicidal ideations (principal); F10.10 Alcohol abuse, uncomplicated; Y90.4 Blood alcohol level of 80-99 mg/100 ml

== ENCOUNTER 2021-02-23 12:19 | Observation (INO) | payer MEDICAID ==
[~2021-02-23] VITALS: Ht 185.4 cm; Wt 113.6 kg
[2021-02-23 12:46] LABS: BASOPHILS 0.7 % (0-2); HEMATOCRIT 48.5 % (42.0-54.0); HEMOGLOBIN 16.5 g/dL (13.5-17.5); LYMPHOCYTES 36.4 % (15-50); MCH 30.9 pg (26.0-34.0); MEAN PLATELET VOLUME 8.6 fL (7.4-10.4); MONOCYTES 6.6 % (2-11); NEUTROPHILS 54.3 % (40-80); RBC 5.33 10x6/uL (4.20-6.10); RDW 14.1 % (11.5-14.5); WBC 14.4 10x3/uL (4.8-10.8)
[2021-02-23 12:55] LABS: PLATELET COUNT 331 10x3/uL (130-400)
[2021-02-23 13:04] LABS: APTT 24.4 SECONDS (22.8-39.4); INR 1.09 (0.85-1.17)
[2021-02-23 14:05] LABS: CALC OSMOLALITY 287 mosm/kg (275-300); CALCIUM 10.6 mg/dL (8.5-10.1); CARBON DIOXIDE 24.9 mmol/L (21.0-32.0); CHLORIDE - SERUM 98 mmol/L (98-107); CREATININE - SERUM 2.9 mg/dL (0.6-1.3); GLUCOSE 176 mg/dL (74-106); POTASSIUM - SERUM 3.1 mmol/L (3.5-5.1); SODIUM 140 mmol/L (136-145); UREA NITROGEN 26 mg/dL (7-18); eGFR NON AFRICAN AMERICAN 25 mL/min (90-120)
[2021-02-23 14:22] LABS: ALKALINE PHOSPHATASE 69 U/L (30-120); ALT (SGPT) 61 U/L (10-68); BILIRUBIN - TOTAL 0.89 mg/dL (0.2-1.3); CKMB 3.3 U/L (0.0-3.6); CREATINE KINASE 457 UL (21-232); PROTEIN - SERUM 8.7 g/dL (6.4-8.2)
[2021-02-23 14:23] LABS: TROPONIN-I < 0.017 ng/mL (0.000-0.060)
[2021-02-23 14:56] LABS: BILIRUBIN NEGATIVE (NEGATIVE); KETONE NEGATIVE mg/dL (< 1+); NITRITE NEGATIVE (NEGATIVE); PH 5.5 (5.0-8.0); SQUAMOUS EPITHELIAL <1 HPF (0-4); UROBILINOGEN NORMAL mg/dL (< 2); WHITE CELLS - URINE 2 HPF (0-1)
[2021-02-23 15:05] LABS: UDS - AMPHET NEGATIVE QUAL (NEGATIVE); UDS - BARB NEGATIVE QUAL (NEGATIVE); UDS - BENZO NEGATIVE QUAL (NEGATIVE); UDS - COCAINE NEGATIVE QUAL (NEGATIVE); UDS - OPIATE NEGATIVE QUAL (NEGATIVE); UDS - PCP NEGATIVE QUAL (NEGATIVE); UDS - THC NEGATIVE QUAL (NEGATIVE)
[2021-02-23 15:25] VITALS: BP 178/80
[2021-02-23 16:22] VITALS: BP 129/80
--- NOTE | 2021-02-23 17:06 | NUR ---
RECEIVED TO ROOM VIA WHEELCHAIR.
[2021-02-23] MEDS ORDERED: LOSARTAN-HCTZ1 EAC1 PO (17:22)
[2021-02-23 17:39] VITALS: BP 106/66; Ht 185.4 cm; Wt 113.6 kg
--- NOTE | 2021-02-23 18:12 | NUR ---
DR RODAS IN TO SEE PATIENT. 40 MEQ GIVEN OF ORAL POTASSIUM FOR EP.
--- NOTE | 2021-02-23 19:00 | NUR ---
REPORT RECEIVED. PATIENT IS AAOX4, LYING IN BED ON LEFT SIDE. NO S/S OF DISTRESS OBSERVED. RR EVEN AND UNLABORED ON ROOM AIR. PIV TO LT HAND, PATENT, INFUSING NS @ 150ML/HR. PATIENT DENIES NEEDS AT THIS TIME. CL IN REACH, BED LOCKED AND LOWERED. WILL PCOC.
[2021-02-23 20:42] VITALS: BP 81/44
--- NOTE | 2021-02-24 01:00 | NUR ---
PATIENT TOOK OFF TELEMETRY AND REFUSED TO ALLOW ME TO PUT IT BACK ON AT THIS TIME. 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
[2021-02-24 01:20] VITALS: BP 95/47
--- NOTE | 2021-02-24 06:09 | NUR ---
PATIENT REFUSING LABS THIS AM AND STILL DOESN'T WANT TELEMETRY ON.
--- NOTE | 2021-02-24 08:23 | HP ---
PATIENT: JEN FOX MEDICAL RECORD: [id number] ACCOUNT: [id number] LOCATION:[address] : 76 ADMISSION DATE: 02/23/21 PCP: CARLOS BENITEZ HISTORY AND PHYSICAL EXAMINATION REASON FOR ADMISSION: Dizziness and over heatedness. HISTORY OF PRESENT ILLNESS: The patient is a 40-year-old male who is followed by Dr. Haroon Benitez at [facility] typically. The patient states that he was helping a friend rip out some floors in her house this morning, started at 6:30, and by 10, he was very overheated. He says the temperature in the house was over 100 degrees. He was not drinking much water, so he left when he felt bad. He tried to walk home, but prior to getting there, he became much more lightheaded. EMS was called and he was brought to the ED for this reason. He complaint of cramping in his lower extremities and decreased urine output, some nausea without vomiting. Denied headache. He denies any recent diarrhea. PAST MEDICAL HISTORY: Essential hypertension. Hospitalized twice at [facility] for suicidal gestures, prediabetes, syncope, history of absence seizure disorder. He has recently been referred to neurology. He is on no meds currently. History of polydrug abuse including IV drugs, methamphetamines, and THC as well as alcohol, anxiety, schizoaffective disorder, and hepatitis type unknown. FAMILY HISTORY: Unknown. SOCIAL HISTORY: He does smoke cigarettes, but he said he has not had any alcohol or illicit drugs for 4 months. PAST SURGICAL HISTORY: Negative. HOME MEDICATIONS: Losartan 100/25 one q.a.m. ALLERGIES: No known allergies. REVIEW OF SYSTEMS: GENERAL: He felt well until this morning after getting overheated, felt very fatigued, nauseated with blurred vision. HENT: Blurred vision, but no loss of vision. No loss of hearing. RESPIRATORY: No severe cough. CARDIAC: No chest pain or palpitations. GASTROINTESTINAL: Some nausea without vomiting. He had abdominal cramping. GENITOURINARY: No dysuria, but decreased urine output. ENDOCRINE: Denies polyuria, polydipsia, heat or cold intolerance. NEUROLOGIC: No history of seizures. He states that he has not had a seizure of tonic-clonic type. He said they were absence types in the past. Most recently, he has been evaluated for near syncopal episodes and has been referred for MRI of the brain when he did not keep the appointment for, neuro and cardiology consult at [facility]. PSYCHIATRIC: Admits to depressed mood intermittently, but currently is stable. He admits to suicidal ideation in the past, but he has never attempted suicide. PHYSICAL EXAMINATION: VITAL SIGNS: Temperature 98.4, pulse 98, respirations 16, blood pressure HISTORY AND PHYSICAL [id number] JEN FOX C 136/90, sats 98% on room air. GENERAL: The patient is awake and oriented to person and place, but not to time. HEENT: Eyes were clear. Oropharynx shows dry mucous membranes. NECK: Supple, without rigidity. CHEST: Clear, without wheeze. HEART: Regular rate without murmur. ABDOMEN: Soft, nontender. No guarding or masses felt. EXTREMITIES: No CC and E. NEUROLOGIC: The patient is oriented to person and place, but not to time. He has no obvious motor or sensory deficits. He complains of muscle cramping in his legs. INTEGUMENT: He was sweating earlier and then quit sweating when he became more ill. PSYCHIATRIC: Denies suicidal thoughts or severe depression currently or homicidal thoughts. EKG shows sinus rhythm with normal axis. LABORATORY DATA: Showed potassium of 3.1. BUN and creatinine are 26 and 2.9, blood sugar of 176 nonfasting. Liver functions were normal. Cardiac enzymes were negative. INR is 1.09. White count is 14,000, H and H of 16 and 48.5 respectively. Normal diff. Urine drug screen is negative today. Urinalysis shows 1+ protein, 1.026 specific gravity, 32 hyalin cast. X-rays unremarkable. ASSESSMENT: 1. Acute renal insufficiency with heat prostration. 2. Heat stroke. 3. Impending rhabdomyolysis with mild elevated CPK of 457. 4. History of essential hypertension, remote absence seizure disorder. 5. History of hepatitis, schizoaffective disorder, IV drug abuse and alcohol abuse, currently drug free. PLAN: The patient was given 2 liters of fluid in the ED. We will continue high rate IV fluid replacement. The patient is now currently alert and denies headache. We will replace potassium. Further workup pending clinical course. If creatinine does not improve, we will have renal consultation. TRANSINT:[id number] Voice Confirmation ID: [id number] DOCUMENT ID: [id number] DESTIN RODAS MD at 0823 CC: [id number] DICTATION DATE: 02/23/211808 PSYCHOLOGY TEACHER: 02/24/21 0017 ADM IN [facility] [address] [place] [address]
--- NOTE | 2021-02-24 08:38 | NUR ---
ALERT AND ORIENTED X4. PULLED OUT IV. LEAVES ROOM. REFUSE TO WAIT FOR AMA PAPER. DR. RODAS AWARE.
== END 2021-02-24 10:37 | disposition left against medical advice (07) ==
LOC: D.ER 12:19 → D.M2 15:03 → OBSVTIME 16:04 → D.M2 02-24 10:37
PROVIDERS: Family Medicine; ADMIT Family Medicine; ATTEND Family Medicine
DX: T67.01XA Heatstroke and sunstroke, initial encounter (principal); T67.2XXA Heat cramp, initial encounter; E86.0 Dehydration; R42 Dizziness and giddiness; N28.9 Disorder of kidney and ureter, unspecified; I10 Essential (primary) hypertension; Z53.29 Procedure and treatment not carried out because of patient's decision for other reasons; F19.10 Other psychoactive substance abuse, uncomplicated